=== PATIENT | male | born 1995 | race Caucasian/White ===

== ENCOUNTER 2017-11-17 19:52 | Emergency (ER) | payer BC ==
[2017-11-17 19:57] VITALS: RESP 18
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
[2017-11-17] MEDS ORDERED: IBUPROFEN 800 MG TAB PO ONE (21:38)
[2017-11-17 22:31] VITALS: BP 126/89; PULSE 88; TEMP 98.1; O2SAT 96
== END 2017-11-17 22:30 | disposition home or self-care (01) ==
DX: S09.90XA Unspecified injury of head, initial encounter (principal); S06.0X0A Concussion without loss of consciousness, initial encounter; S60.221A Contusion of right hand, initial encounter; Y09 Assault by unspecified means

== ENCOUNTER → 2017-12-28 | Outpatient (CLI) | payer BC | LOC: BMCIMAGING 17:36 | PROVIDERS: ATTEND Family Medicine | DX: M79.641 Pain in right hand (principal) ==